=== PATIENT | female | born 1990 | race Caucasian/White ===

== ENCOUNTER 2016-08-13 13:50 | Outpatient (CLI) | payer MEDICAID ==
[2016-08-13 14:46] LABS: APPEARANCE,URINE CLOUDY; BILIRUBIN,URINE NEGATIVE (NEGATIVE); GLUCOSE, URINE NEGATIVE (NEGATIVE); KETONES,URINE 20 mg/dL (NEGATIVE); LEUKOCYTE ESTERASE,URINE LARGE (NEGATIVE); NITRITE,URINE NEGATIVE (NEGATIVE); PROTEIN,URINE 30 mg/dL (NEGATIVE); URINE SPECIFIC GRAVITY 1.009; UROBILINOGEN,URINE NEGATIVE mg/dL (<2.0)
[2016-08-13 14:53] LABS: URINE BARBITURATES SCREEN NEGATIVE; URINE METHADONE SCREEN NEGATIVE; URINE OPIATES LOW NEGATIVE; URINE PHENCYCLIDINE SCREEN NEGATIVE
[2016-08-13 15:10] LABS: URINE CREATININE 64.7 mg/dL (16-327); URINE PROTEIN 58.4 mg/dL (<12)
[2016-08-13 15:45] LABS: ABSOLUTE EOSINOPHILS # (AUTO) 0.1 10^3/uL (0.0-0.6); ABSOLUTE LYMPHOCYTES (AUTO) 1.7 10^3/uL (0.5-4.7); ABSOLUTE MONOCYTES (AUTO) 0.6 10^3/uL (0.1-1.4); ABSOLUTE NEUT (AUTO) 9.4 10^3/uL (1.7-8.2); BASOPHILS % (AUTO) 0.3 % (0-2); EOSINOPHILS % (AUTO) 0.8 % (0-6); HEMATOCRIT 33.4 % (36.0-47.0); HEMOGLOBIN 10.7 g/dL (12.0-15.5); HGB HCT DIFFERENCE -1.3; LYMPHOCYTES % (AUTO) 14.6 % (13-45); MEAN CORPUSCULAR HEMOGLOBIN 28.6 pg (27.0-33.4); MEAN CORPUSCULAR HGB CONC 32.1 g/dL (32.0-36.0); MEAN CORPUSCULAR VOLUME 89 fl (80-97); MONOCYTES % (AUTO) 5.4 % (3-13); RED BLOOD COUNT 3.75 10^6/uL (3.72-5.28); RED CELL DISTRIBUTION WIDTH 15.4 % (11.5-14.0); SEGMENTED NEUTROPHILS % (AUTO) 78.9 % (42-78); WHITE BLOOD COUNT 11.9 10^3/uL (4.0-10.5)
--- NOTE | 2016-08-13 16:09 | Non Stress Test Report ---
Non Stress Test Datetime Report Generated by CPN: 08/13/2016 16:09 DEMOGRAPHIC EGA NST: 35.4 INDICATION Indication for Study: Ordered by Provider MONITORING Monitor Explained: Monitor Explained; Test Explained; Patient Verbalized Understanding Time on Monitor: 08/13/2016 14:09 Time off Monitor: 08/13/2016 15:25 NST Duration: 76 NST INTERVENTIONS NST Interventions: PO Hydration; Reposition Patient Physician Notified NST: Dr. Neilsen BABY A: [id number] BABY A Movement : Present Contraction Frequency : Occassional FHR Baseline : 125 Accelerations : 15X15 Decelerations : None Variability : Moderate 6-25bpm NST Review: Meets Criteria for Reactive NST NST Review and Verified By : Rocio Gonzales RN NST Results: Reactive NST REPORT Report Trigger: Send Report
[2016-08-13 16:14] LABS: ALANINE AMINOTRANSFERASE 59 U/L (9-52); ALBUMIN 3.2 g/dL (3.5-5.0); ALKALINE PHOSPHATASE 135 U/L (38-126); ANION GAP 12 (5-19); ASPARTATE AMINO TRANSFERASE 31 U/L (14-36); BILIRUBIN,DIRECT 0.3 mg/dL (0.0-0.4); BILIRUBIN,TOTAL 0.4 mg/dL (0.2-1.3); BLOOD UREA NITROGEN 10 mg/dL (7-20); CALCIUM 9.4 mg/dL (8.4-10.2); CARBON DIOXIDE 20 mmol/L (22-30); CHLORIDE 108 mmol/L (98-107); CREATININE RESULT 0.72 mg/dL (0.52-1.25); GLUCOSE 68 mg/dL (75-110); LDH 460 U/L (313-618); POTASSIUM 4.8 mmol/L (3.6-5.0); SODIUM 140.4 mmol/L (137-145); TOTAL PROTEIN 6.3 g/dL (6.3-8.2); URIC ACID 6.6 mg/dL (2.5-6.2)
== END 2016-08-13 16:30 | disposition home or self-care (01) ==
LOC: LC 13:50
PROVIDERS: ATTEND Specialist
PROC: 4A1HXCZ Monitoring of Products of Conception, Cardiac Rate, External Approach (ICD-10-PCS; principal; 2016-08-13)
DX: O14.93 Unspecified pre-eclampsia, third trimester (principal); Z3A.35 35 weeks gestation of pregnancy
CPT/HCPCS: 36415; 59025; 80053; 80307; 81001; 82570; 83615; 84156; 84550; 85025

== ENCOUNTER 2016-08-19 16:39 | Outpatient (CLI) | payer MEDICAID ==
[2016-08-19 17:27] LABS: ABSOLUTE EOSINOPHILS # (AUTO) 0.1 10^3/uL (0.0-0.6); ABSOLUTE LYMPHOCYTES (AUTO) 1.8 10^3/uL (0.5-4.7); ABSOLUTE MONOCYTES (AUTO) 0.6 10^3/uL (0.1-1.4); ABSOLUTE NEUT (AUTO) 10.5 10^3/uL (1.7-8.2); BASOPHILS % (AUTO) 0.2 % (0-2); EOSINOPHILS % (AUTO) 0.8 % (0-6); HEMATOCRIT 33.6 % (36.0-47.0); HEMOGLOBIN 10.9 g/dL (12.0-15.5); HGB HCT DIFFERENCE -0.9; LYMPHOCYTES % (AUTO) 13.6 % (13-45); MEAN CORPUSCULAR HEMOGLOBIN 28.9 pg (27.0-33.4); MEAN CORPUSCULAR HGB CONC 32.5 g/dL (32.0-36.0); MEAN CORPUSCULAR VOLUME 89 fl (80-97); MONOCYTES % (AUTO) 4.8 % (3-13); RED BLOOD COUNT 3.77 10^6/uL (3.72-5.28); RED CELL DISTRIBUTION WIDTH 16.3 % (11.5-14.0); SEGMENTED NEUTROPHILS % (AUTO) 80.6 % (42-78)
[2016-08-19 17:34] LABS: APPEARANCE,URINE CLOUDY; BILIRUBIN,URINE NEGATIVE (NEGATIVE); GLUCOSE, URINE NEGATIVE (NEGATIVE); KETONES,URINE NEGATIVE (NEGATIVE); LEUKOCYTE ESTERASE,URINE LARGE (NEGATIVE); NITRITE,URINE NEGATIVE (NEGATIVE); PROTEIN,URINE NEGATIVE (NEGATIVE); URINE SPECIFIC GRAVITY 1.005; UROBILINOGEN,URINE NEGATIVE mg/dL (<2.0)
[2016-08-19 17:44] LABS: URINE BARBITURATES SCREEN NEGATIVE; URINE METHADONE SCREEN NEGATIVE; URINE OPIATES LOW NEGATIVE; URINE PHENCYCLIDINE SCREEN NEGATIVE
[2016-08-19 17:44] LABS: ALANINE AMINOTRANSFERASE 53 U/L (9-52); ALBUMIN 3.3 g/dL (3.5-5.0); ALKALINE PHOSPHATASE 178 U/L (38-126); ANION GAP 11 (5-19); ASPARTATE AMINO TRANSFERASE 30 U/L (14-36); BILIRUBIN,DIRECT 0.4 mg/dL (0.0-0.4); BILIRUBIN,TOTAL 0.5 mg/dL (0.2-1.3); BLOOD UREA NITROGEN 7 mg/dL (7-20); CALCIUM 9.1 mg/dL (8.4-10.2); CARBON DIOXIDE 20 mmol/L (22-30); CHLORIDE 108 mmol/L (98-107); CREATININE RESULT 0.72 mg/dL (0.52-1.25); GLUCOSE 79 mg/dL (75-110); LDH 430 U/L (313-618); POTASSIUM 4.6 mmol/L (3.6-5.0); SODIUM 138.8 mmol/L (137-145); TOTAL PROTEIN 6.3 g/dL (6.3-8.2); URIC ACID 5.7 mg/dL (2.5-6.2)
[2016-08-19 17:53] LABS: URINE PROTEIN 27.9 mg/dL (<12)
--- NOTE | 2016-08-19 17:57 | Non Stress Test Report ---
Non Stress Test Datetime Report Generated by CPN: 08/19/2016 17:57 DEMOGRAPHIC EGA NST: 36.3 INDICATION Indication for Study: Ordered by Provider MONITORING Monitor Explained: Monitor Explained; Test Explained; Patient Verbalized Understanding Time on Monitor: 08/19/2016 17:02 Time off Monitor: 08/19/2016 17:23 NST Duration: 21 NST INTERVENTIONS NST Interventions: None Physician Notified NST: Dr. Dyson BABY A: [id number] BABY A Movement : Present Contraction Frequency : none FHR Baseline : 135 Accelerations : 15X15 Decelerations : None Variability : Moderate 6-25bpm NST Review: Meets Criteria for Reactive NST NST Review and Verified By : JAMESON RUSH RN NST Results: Reactive NST REPORT Report Trigger: Send Report
[2016-08-21 21:13] LABS: URINE PROTEIN 34.9 mg/dL (<12)
== END 2016-08-19 18:20 | disposition home or self-care (01) ==
LOC: LC 16:39
PROVIDERS: ATTEND Obstetrics & Gynecology
DX: O14.93 Unspecified pre-eclampsia, third trimester (principal); Z3A.36 36 weeks gestation of pregnancy
CPT/HCPCS: 36415; 59025; 80053; 80307; 81001; 82570; 83615; 84156; 84550; 85025

== ENCOUNTER 2016-08-23 16:53 | Inpatient (IN) | payer MEDICAID ==
[2016-08-23 17:43] LABS: APPEARANCE,URINE CLOUDY; BILIRUBIN,URINE NEGATIVE (NEGATIVE); GLUCOSE, URINE NEGATIVE (NEGATIVE); KETONES,URINE NEGATIVE (NEGATIVE); LEUKOCYTE ESTERASE,URINE MODERATE (NEGATIVE); NITRITE,URINE NEGATIVE (NEGATIVE); PROTEIN,URINE 100 mg/dL (NEGATIVE); URINE SPECIFIC GRAVITY 1.018; UROBILINOGEN,URINE NEGATIVE mg/dL (<2.0)
[2016-08-23 17:44] LABS: ABSOLUTE EOSINOPHILS # (AUTO) 0.1 10^3/uL (0.0-0.6); ABSOLUTE LYMPHOCYTES (AUTO) 1.6 10^3/uL (0.5-4.7); ABSOLUTE MONOCYTES (AUTO) 0.8 10^3/uL (0.1-1.4); BASOPHILS % (AUTO) 0.3 % (0-2); EOSINOPHILS % (AUTO) 0.9 % (0-6); HEMATOCRIT 35.5 % (36.0-47.0); HEMOGLOBIN 11.6 g/dL (12.0-15.5); HGB HCT DIFFERENCE -0.7; LYMPHOCYTES % (AUTO) 13.7 % (13-45); MEAN CORPUSCULAR HEMOGLOBIN 29.1 pg (27.0-33.4); MEAN CORPUSCULAR HGB CONC 32.7 g/dL (32.0-36.0); MEAN CORPUSCULAR VOLUME 89 fl (80-97); MONOCYTES % (AUTO) 7.3 % (3-13); RED BLOOD COUNT 3.99 10^6/uL (3.72-5.28); SEGMENTED NEUTROPHILS % (AUTO) 77.8 % (42-78); WHITE BLOOD COUNT 11.6 10^3/uL (4.0-10.5)
[2016-08-23 17:56] LABS: URINE BARBITURATES SCREEN NEGATIVE; URINE METHADONE SCREEN NEGATIVE; URINE OPIATES LOW NEGATIVE; URINE PHENCYCLIDINE SCREEN NEGATIVE
[2016-08-23 18:06] LABS: URINE CREATININE 192.2 mg/dL (16-327); URINE PROTEIN 47.5 mg/dL (<12)
[2016-08-23 18:15] LABS: ALANINE AMINOTRANSFERASE 66 U/L (9-52); ALBUMIN 3.3 g/dL (3.5-5.0); ALKALINE PHOSPHATASE 199 U/L (38-126); ANION GAP 11 (5-19); ASPARTATE AMINO TRANSFERASE 40 U/L (14-36); BILIRUBIN,DIRECT 0.3 mg/dL (0.0-0.4); BILIRUBIN,TOTAL 0.4 mg/dL (0.2-1.3); BLOOD UREA NITROGEN 10 mg/dL (7-20); CALCIUM 9.1 mg/dL (8.4-10.2); CARBON DIOXIDE 19 mmol/L (22-30); CHLORIDE 107 mmol/L (98-107); CREATININE RESULT 0.72 mg/dL (0.52-1.25); GLUCOSE 67 mg/dL (75-110); LDH 459 U/L (313-618); POTASSIUM 4.4 mmol/L (3.6-5.0); TOTAL PROTEIN 6.4 g/dL (6.3-8.2); URIC ACID 5.9 mg/dL (2.5-6.2)
[2016-08-23] MEDS ORDERED: ACETAMINOPHEN 325 MG TABLET PO PRN (19:45)
[2016-08-23] MEDS ORDERED: MAG HYDROX/AL HYDROX/SIMETH SUSP 30 ML UDCUP PO PRN (19:45)
[2016-08-23] MEDS ORDERED: ZOLPIDEM TARTRATE 5 MG TABLET PO PRN ×3 (19:45→23:37)
[2016-08-23] MEDS ORDERED: RINGERS SOLUTION,LACTATED 300 ML IV ONE (19:49)
[2016-08-23] MEDS ORDERED: DINOPROSTONE 10 MG VAGINAL INSERT.SR PV PRN (19:49)
[2016-08-23] MEDS ORDERED: DINOPROSTONE 10 MG VAGINAL INSERT.SR ONE (20:40)
[2016-08-23] MEDS: RINGERS SOLUTION,LACTATED 1,000 ML IV PRN (21:09)
[2016-08-23] MEDS ORDERED: ZOLPIDEM TARTRATE 5 MG TABLET ONE (23:29)
[2016-08-24] MEDS: RINGERS SOLUTION,LACTATED 1,000 ML IV PRN ×3 (01:26→23:43)
[2016-08-24 05:48] LABS: ABSOLUTE EOSINOPHILS # (AUTO) 0.1 10^3/uL (0.0-0.6); ABSOLUTE LYMPHOCYTES (AUTO) 1.7 10^3/uL (0.5-4.7); ABSOLUTE MONOCYTES (AUTO) 0.8 10^3/uL (0.1-1.4); ABSOLUTE NEUT (AUTO) 9.8 10^3/uL (1.7-8.2); BASOPHILS % (AUTO) 0.3 % (0-2); EOSINOPHILS % (AUTO) 0.6 % (0-6); HEMATOCRIT 34.9 % (36.0-47.0); HEMOGLOBIN 11.5 g/dL (12.0-15.5); HGB HCT DIFFERENCE -0.4; LYMPHOCYTES % (AUTO) 13.7 % (13-45); MEAN CORPUSCULAR HEMOGLOBIN 29.6 pg (27.0-33.4); MEAN CORPUSCULAR HGB CONC 33.1 g/dL (32.0-36.0); MEAN CORPUSCULAR VOLUME 90 fl (80-97); MONOCYTES % (AUTO) 6.3 % (3-13); RED BLOOD COUNT 3.89 10^6/uL (3.72-5.28); RED CELL DISTRIBUTION WIDTH 15.9 % (11.5-14.0); SEGMENTED NEUTROPHILS % (AUTO) 79.1 % (42-78); WHITE BLOOD COUNT 12.4 10^3/uL (4.0-10.5)
[2016-08-24 06:07] LABS: ALANINE AMINOTRANSFERASE 60 U/L (9-52); ALBUMIN 3.1 g/dL (3.5-5.0); ALKALINE PHOSPHATASE 199 U/L (38-126); ANION GAP 11 (5-19); ASPARTATE AMINO TRANSFERASE 41 U/L (14-36); BILIRUBIN,DIRECT 0.4 mg/dL (0.0-0.4); BILIRUBIN,TOTAL 0.6 mg/dL (0.2-1.3); BLOOD UREA NITROGEN 9 mg/dL (7-20); CALCIUM 9.2 mg/dL (8.4-10.2); CARBON DIOXIDE 17 mmol/L (22-30); CHLORIDE 109 mmol/L (98-107); CREATININE RESULT 0.72 mg/dL (0.52-1.25); GLUCOSE 82 mg/dL (75-110); LDH 406 U/L (313-618); POTASSIUM 4.4 mmol/L (3.6-5.0); TOTAL PROTEIN 5.8 g/dL (6.3-8.2); URIC ACID 6.5 mg/dL (2.5-6.2)
[2016-08-24] MEDS ORDERED: NALBUPHINE HCL INJ 10 MG/1 ML AMPULE ONE (11:40)
[2016-08-24] MEDS ORDERED: OXYTOCIN/NORMAL SALINE 1,000 ML IV PRN (11:40)
--- NOTE | 2016-08-24 11:41 | L&D Progress Notes ---
PROGRESS NOTES Datetime Report Generated by CPN: 08/24/2016 11:40 PROGRESS NOTE Impression: Normal Progression of Labor Procedures: Sterile Vag Exam Plan: Continue Present Management; Induction; Cervical Ripening Informed Consent Obtained: Vaginal Delivery; Risks, Benefits and Alternatives Discussed Vital Signs : Reviewed; Within Normal Limits Comment: IOL for PreE. Cvx c/th/hi last pm and pt recieved cervidil. Cvx now /3 and Cooks catheter placed. Will begin pitocin. Anticpate . Baby approx 8#. Pelvis adequate for MELY. CAT I FHR tracing. VAGINAL EXAM Dilatation: 1 Effacement: 50 Station: -3 FETUS A FHR - Baseline: 130 Monitoring: External US Variability: Moderate 6-25bpm Accelerations: 15X15 Decelerations: None FHR Category: Category I SIGNATURE SIGNATURE: [id number];[id number] SIGNATURE: [id number] SIGNATURE: [id number] Signature: with User ID: [email or web address]
[2016-08-24] MEDS ORDERED: OXYTOCIN/NORMAL SALINE 20 UNIT/1,000 ML RTUINJ ONE (11:49)
[2016-08-24] MEDS ORDERED: EPHEDRINE SULFATE INJ 50 MG/1 ML AMPULE ONE (15:49)
[2016-08-24] MEDS ORDERED: MISOPROSTOL 0.2 MG TABLET ONE (15:49)
[2016-08-24] MEDS ORDERED: BUPIVACAINE HCL 0.25 % INJ/PF (2.5 MG/1 ML) 30 ML VIAL ONE (15:50)
[2016-08-24] MEDS ORDERED: LIDOCAINE 1% INJ-PF (10 MG/ML) 30 ML SDV ONE (15:50)
[2016-08-24] MEDS ORDERED: FENTANYL/BUPIVACAINE/NS/PF 200 MCG/100 ML RTUINJ EPI ONE (15:50)
--- NOTE | 2016-08-24 15:58 | L&D Progress Notes ---
PROGRESS NOTES Datetime Report Generated by CPN: 08/24/2016 15:58 PROGRESS NOTE Impression: Normal Progression of Labor Procedures: Sterile Vag Exam Plan: Continue Present Management; Induction Informed Consent Obtained: Vaginal Delivery; Risks, Benefits and Alternatives Discussed Vital Signs : Reviewed; Within Normal Limits Comment: cooks catheter coming out. Cooks catheter removed. cvx 5-6/70/-2. Pt desires epidural. Will get epidural and then AROM and continue pitocin. Anticpate . VAGINAL EXAM Dilatation: 5 Effacement: 70 Station: -2 MEMBRANES Membranes: Intact FETUS A FHR - Baseline: 125 Monitoring: External US Variability: Moderate 6-25bpm Accelerations: 15X15 Decelerations: None FHR Category: Category I FETUS C SIGNATURE: [id number];[id number] Signature: with User ID: Hang
--- NOTE | 2016-08-24 17:10 | L&D Progress Notes ---
PROGRESS NOTES Datetime Report Generated by CPN: 08/24/2016 17:10 PROGRESS NOTE Impression: Normal Progression of Labor Procedures: Artificial ROM; Sterile Vag Exam Plan: Continue Present Management; Induction Informed Consent Obtained: Vaginal Delivery; Risks, Benefits and Alternatives Discussed Vital Signs : Reviewed; Within Normal Limits Comment: epidural done. AROM with particulate meconium. cvx 6/70/-2. BPs mild range. Doing well. Continue pitocin. Anticpate . BPs mild range. Repeat Labs at 1800 VAGINAL EXAM Dilatation: 6 Effacement: 70 Station: -2 MEMBRANES Membranes: Ruptured Amniotic Fluid Color: Meconium, Particulate FETUS A FHR - Baseline: 120 Monitoring: External US Variability: Moderate 6-25bpm Accelerations: 15X15 Decelerations: None FHR Category: Category I FETUS C SIGNATURE: [id number];[id number] Signature: with User ID: Hang
[2016-08-24 17:48] LABS: ABSOLUTE EOSINOPHILS # (AUTO) 0.1 10^3/uL (0.0-0.6); ABSOLUTE LYMPHOCYTES (AUTO) 1.4 10^3/uL (0.5-4.7); ABSOLUTE MONOCYTES (AUTO) 0.8 10^3/uL (0.1-1.4); BASOPHILS % (AUTO) 0.3 % (0-2); EOSINOPHILS % (AUTO) 0.5 % (0-6); HEMATOCRIT 35.2 % (36.0-47.0); HEMOGLOBIN 11.5 g/dL (12.0-15.5); HGB HCT DIFFERENCE -0.7; LYMPHOCYTES % (AUTO) 11.3 % (13-45); MEAN CORPUSCULAR HEMOGLOBIN 29.4 pg (27.0-33.4); MEAN CORPUSCULAR HGB CONC 32.5 g/dL (32.0-36.0); MEAN CORPUSCULAR VOLUME 90 fl (80-97); MONOCYTES % (AUTO) 6.6 % (3-13); RED CELL DISTRIBUTION WIDTH 16.4 % (11.5-14.0); SEGMENTED NEUTROPHILS % (AUTO) 81.3 % (42-78); WHITE BLOOD COUNT 12.3 10^3/uL (4.0-10.5)
[2016-08-24 18:00] LABS: ALANINE AMINOTRANSFERASE 58 U/L (9-52); ALBUMIN 3.1 g/dL (3.5-5.0); ALKALINE PHOSPHATASE 202 U/L (38-126); ANION GAP 11 (5-19); ASPARTATE AMINO TRANSFERASE 34 U/L (14-36); BILIRUBIN,DIRECT 0.4 mg/dL (0.0-0.4); BILIRUBIN,TOTAL 0.6 mg/dL (0.2-1.3); BLOOD UREA NITROGEN 9 mg/dL (7-20); CALCIUM 9.1 mg/dL (8.4-10.2); CARBON DIOXIDE 18 mmol/L (22-30); CHLORIDE 106 mmol/L (98-107); GLUCOSE 63 mg/dL (75-110); LDH 368 U/L (313-618); POTASSIUM 4.8 mmol/L (3.6-5.0); SODIUM 135.2 mmol/L (137-145); TOTAL PROTEIN 5.9 g/dL (6.3-8.2); URIC ACID 6.1 mg/dL (2.5-6.2)
--- NOTE | 2016-08-24 21:16 | L&D Progress Notes ---
PROGRESS NOTES Datetime Report Generated by CPN: 08/24/2016 21:16 PROGRESS NOTE Impression: Normal Progression of Labor; Reassuring Heart Rate; Reactive Non Stress Test Procedures: Intrauterine Pressure Catheter; Scalp Electrode; Sterile Vag Exam Plan: Continue Present Management; Induction Informed Consent Obtained: Vaginal Delivery; Risks, Benefits and Alternatives Discussed Vital Signs : Reviewed; Within Normal Limits Comment: IUPC and FSE in place. 6-7/80/0 now. Intermittently adequate MVUs. still with dysfunctional labor pattern. Will continue with pitocin. Pt making change. Pelvis adequate for MELY. will continue with IOL as FHR tracing is reactive and reassuring. Anticipate VAGINAL EXAM Dilatation: 6 Effacement: 80 Station: 0 MEMBRANES Membranes: Ruptured Amniotic Fluid Color: Meconium, Particulate FETUS A FHR - Baseline: 125 Variability: Moderate 6-25bpm Accelerations: 15X15 Decelerations: None FHR Category: Category I FETUS C SIGNATURE: [id number];[id number] Signature: Electronically signed by Vandana Klein MD ([facility]) on 08/24/2016 at 21:15 with User ID: [email or web address]
[2016-08-24] MEDS ORDERED: ACETAMINOPHEN 325 MG TABLET PO ONE (23:11)
[2016-08-24] MEDS ORDERED: ACETAMINOPHEN 325 MG TABLET ONE (23:16)
[2016-08-24] MEDS ORDERED: HYDRALAZINE HCL INJ/PF 20 MG/1 ML SDV IV ONE (23:32)
[2016-08-24] MEDS ORDERED: HYDRALAZINE HCL INJ/PF 20 MG/1 ML SDV ONE (23:36)
[2016-08-25] MEDS ORDERED: FENTANYL/BUPIVACAINE/NS/PF 200 MCG/100 ML RTUINJ EPI ONE ×2 (01:42→11:26)
[2016-08-25] MEDS ORDERED: BUPIVACAINE HCL 0.25 % INJ/PF (2.5 MG/1 ML) 30 ML VIAL ONE (01:43)
--- NOTE | 2016-08-25 03:47 | L&D Progress Notes ---
PROGRESS NOTES Datetime Report Generated by N: 08/25/2016 03:46 PROGRESS NOTE Impression: Normal Progression of Labor; Reassuring Heart Rate Procedures: Sterile Vag Exam Plan: Continue Present Management; Induction Informed Consent Obtained: Vaginal Delivery; Risks, Benefits and Alternatives Discussed Vital Signs : Reviewed Vital Signs Comments: intermittently elevated BPs improved with meds Comment: Pit rest with 250ml D5 given from 2300-midnight due to unable to obtain adequate MVUs despite max pitocin dose. Pitocin restarted at approx midnight at half and increased per protocol. Now at 20 and will increase pitocin to 30 if resting tone remains stable. MVUs only adequate since midnight for approx 15-20 minute cycle. Will continue to increase pitocin per protocol. If unable to obtain adequate MVUs or cervical change at that time then patient may need section. Will continue to monitor. Pt and family informed of plan of care. Pelvis adequate for continued MELY VAGINAL EXAM Dilatation: 6 Effacement: 80 Station: 0 MEMBRANES Membranes: Ruptured Amniotic Fluid Color: Meconium, Particulate FETUS A Monitoring: External US Variability: Moderate 6-25bpm Accelerations: 15X15 Decelerations: None FHR Category: Category I FETUS C SIGNATURE: [id number];[id number] Signature: with User ID: [email or web address]
[2016-08-25 06:11] LABS: ABSOLUTE BASOPHILS # (AUTO) 0.1 10^3/uL (0.0-0.2); ABSOLUTE LYMPHOCYTES (AUTO) 0.9 10^3/uL (0.5-4.7); ABSOLUTE MONOCYTES (AUTO) 1.2 10^3/uL (0.1-1.4); ABSOLUTE NEUT (AUTO) 15.5 10^3/uL (1.7-8.2); BASOPHILS % (AUTO) 0.3 % (0-2); EOSINOPHILS % (AUTO) 0.2 % (0-6); HEMOGLOBIN 11.8 g/dL (12.0-15.5); HGB HCT DIFFERENCE -0.6; LYMPHOCYTES % (AUTO) 5.1 % (13-45); MEAN CORPUSCULAR HEMOGLOBIN 29.5 pg (27.0-33.4); MEAN CORPUSCULAR HGB CONC 32.8 g/dL (32.0-36.0); MEAN CORPUSCULAR VOLUME 90 fl (80-97); MONOCYTES % (AUTO) 6.6 % (3-13); RED BLOOD COUNT 4.01 10^6/uL (3.72-5.28); RED CELL DISTRIBUTION WIDTH 16.1 % (11.5-14.0); SEGMENTED NEUTROPHILS % (AUTO) 87.8 % (42-78); WHITE BLOOD COUNT 17.6 10^3/uL (4.0-10.5)
[2016-08-25 06:42] LABS: ALANINE AMINOTRANSFERASE 67 U/L (9-52); ALBUMIN 2.8 g/dL (3.5-5.0); ALKALINE PHOSPHATASE 203 U/L (38-126); ANION GAP 14 (5-19); ASPARTATE AMINO TRANSFERASE 43 U/L (14-36); BILIRUBIN,DIRECT 0.5 mg/dL (0.0-0.4); BILIRUBIN,TOTAL 0.8 mg/dL (0.2-1.3); BLOOD UREA NITROGEN 11 mg/dL (7-20); CALCIUM 8.9 mg/dL (8.4-10.2); CARBON DIOXIDE 14 mmol/L (22-30); CHLORIDE 109 mmol/L (98-107); CREATININE RESULT 1.05 mg/dL (0.52-1.25); GLUCOSE 81 mg/dL (75-110); LDH 517 U/L (313-618); POTASSIUM 4.3 mmol/L (3.6-5.0); SODIUM 136.9 mmol/L (137-145); TOTAL PROTEIN 5.8 g/dL (6.3-8.2)
--- NOTE | 2016-08-25 07:46 | L&D Progress Notes ---
PROGRESS NOTES Datetime Report Generated by CPN: 08/25/2016 07:46 PROGRESS NOTE Impression: Normal Progression of Labor; Reassuring Heart Rate Procedures: Artificial ROM; Sterile Vag Exam Plan: Continue Present Management; Induction Informed Consent Obtained: Vaginal Delivery; Induction of Labor Vital Signs : Reviewed Comment: Pt with PreE and now has had to recieve 2 doses of hydralazine. Labs also increasing. Will need to start Magnesium. Pt has been adequate over the last 1-2 hours and now with cervical change and entering labor. cvx change to 7.5/80/+1. Will continue with pitocin and IOL. Pt is aware if cervical change does not continue that may need c/s. Will likely need BP meds pp. Pelvis adequate for MELY. VAGINAL EXAM Dilatation: 7 Effacement: 80 Station: 1 MEMBRANES Amniotic Fluid Color: Meconium, Particulate FETUS A FHR - Baseline: 150 Monitoring: External US Variability: Moderate 6-25bpm Accelerations: 15X15 Decelerations: None FHR Category: Category I FETUS C SIGNATURE: [id number];[id number] Signature: with User ID: [email or web address]
[2016-08-25] MEDS ORDERED: OXYTOCIN/NORMAL SALINE 20 UNIT/1,000 ML RTUINJ ONE ×2 (08:36→17:47)
--- NOTE | 2016-08-25 08:48 | L&D Progress Notes ---
PROGRESS NOTES Datetime Report Generated by CPN: 08/25/2016 08:48 PROGRESS NOTE Plan: Continue Present Management; Induction Informed Consent Obtained: Vaginal Delivery; Risks, Benefits and Alternatives Discussed Vital Signs : Reviewed Vital Signs Comments: elevated bps pt denies headaches or blurred vision noted swelling throughout pt given 2 doses hydralazine total since admission will monitor and consider initiating magnesium at delivery Comment: 26 yo here for induction of labor secondary to Preeclampsia EDC 09/13/16 EGA 37.2 GDM on glyburide 2.5 mg po qhs Asthma Macrosomia at [address] pt left lateral reviewed elevated bps with Dr. Dyson- consider starting magnesium sulfate at delivery bps labile pt denies headache or blurred vision at this time dtrs +3 no clonus pt reporting increased urge to push anticipate VAGINAL EXAM Contractions: 2-4 min FETUS A FHR - Baseline: 120 Monitoring: External US Variability: Moderate 6-25bpm Accelerations: 15X15 Decelerations: None : 37.2 FETUS C SIGNATURE: [id number];[id number] Assignment: Kj Dyson DO Signature: with User ID: Katharine : with User ID: [email or web address]
[2016-08-25] MEDS ORDERED: ACETAMINOPHEN 325 MG TABLET ONE (11:33)
--- NOTE | 2016-08-25 11:55 | L&D Progress Notes ---
PROGRESS NOTES Datetime Report Generated by CPN: 08/25/2016 11:54 PROGRESS NOTE Impression: Chorioamnionitis Plan: Continue Present Management Informed Consent Obtained: Vaginal Delivery; Induction of Labor; Risks, Benefits and Alternatives Discussed Vital Signs : Reviewed Vital Signs Comments: pt pushing now Comment: pt with increased urge to push temp 101 tylenol given 975 mg po x 1 Unasyn 3 gm q 8 ivpb start now C/C/ +[address] dyson aware and concurs with poc MEMBRANES Amniotic Fluid Color: Meconium, Light FETUS A Variability: Moderate 6-25bpm Decelerations: None FHR Category: Category I FETUS C SIGNATURE: [id number];[id number] Assignment: Kj Dyson DO Signature: with User ID: Katharine : with User ID: [email or web address]
[2016-08-25] MEDS ORDERED: AMPICILLIN SOD/SULBACTAM 3 GM VIAL ONE (12:26)
[2016-08-25] MEDS ORDERED: AMPICILLIN SOD/SULBACTAM 3 GM VIAL IV SCH (14:00)
[2016-08-25] MEDS ORDERED: CITRIC ACID/SODIUM CITRATE ORAL SOLN 15 ML UDCUP ONE (14:23)
[2016-08-25] MEDS ORDERED: METHYLERGONOVINE MALEATE INJ/PF 0.2 MG/1 ML AMPULE ONE (14:25)
[2016-08-25] MEDS ORDERED: CEFAZOLIN 2 GM/D5W RTU 2 GM/50 ML RTUPB IV ONE (14:25)
[2016-08-25] MEDS ORDERED: CARBOPROST TROMETHAMINE INJ 250 MCG/1 ML AMPULE ONE ×2 (14:25→14:26)
[2016-08-25] MEDS ORDERED: LIDOCAINE 2%/EPINEPHRINE INJ 20 ML VIAL ONE (14:35)
[2016-08-25] MEDS ORDERED: SODIUM BICARBONATE 8.4% INJ 50 MEQ/50 ML DISP.SYRIN ONE (14:35)
[2016-08-25] MEDS ORDERED: FENTANYL CITRATE INJ/PF 100 MCG/2 ML AMPUL ONE (14:39)
[2016-08-25] MEDS ORDERED: OXYTOCIN 10 UNIT/ML VIAL ONE (14:39)
[2016-08-25] MEDS ORDERED: MIDAZOLAM 2 MG/2 ML INJ ONE (14:40)
[2016-08-25] MEDS ORDERED: EPHEDRINE SULFATE INJ 50 MG/1 ML AMPULE ONE (14:40)
[2016-08-25] MEDS ORDERED: ONDANSETRON HCL INJ/PF 4 MG/2 ML SDV ONE (14:40)
[2016-08-25] MEDS ORDERED: AMPICILLIN SODIUM/SULBACTAM NA 3 GM in NORMAL SALINE 100 ML IV SCH (15:00)
[2016-08-25] MEDS ORDERED: MORPHINE SULFATE 10 MG/ML INJ ONE (15:35)
[2016-08-25] MEDS ORDERED: ACETAMINOPHEN 100 ML IV ONE (16:05)
[2016-08-25] MEDS ORDERED: FENTANYL CITRATE INJ/PF 100 MCG/2 ML AMPUL IV PRN ×3 (16:10)
[2016-08-25] MEDS ORDERED: MORPHINE SULFATE 10 MG/ML INJ IV PRN (16:10)
[2016-08-25] MEDS ORDERED: MEPERIDINE HCL/PF INJ 25 MG/1 ML DISP.SYRIN IV PRN (16:10)
[2016-08-25] MEDS ORDERED: PROMETHAZINE HCL INJ 25 MG/1 ML VIAL IV PRN ×3 (16:10→18:46)
[2016-08-25] MEDS ORDERED: DIPHENHYDRAMINE HCL 50 MG/ML VIAL IV PRN (16:10)
[2016-08-25] MEDS ORDERED: MORPHINE SULFATE 10 MG/ML INJ IV ONE (17:42)
[2016-08-25] MEDS ORDERED: DIPHENOXYLATE HCL/ATROP SULF 2.5-0.025 MG TABLET PO ONE (18:00)
--- NOTE | 2016-08-25 18:22 | Admission Physical ---
Datetime Report Generated by CPN: 08/25/2016 18:22 CURRENT ADMISSION Hx Assessment: The History has been Reviewed and is Current Chief Complaint: Sent from OB Office for Evaluation and Treatment - Please Specify Chief Complaint Other: sent for elevated bps Admit Plan: Initiate Labor Induction Protocol ALLERGIES Medication Allergies: No Medication Allergies: hydromorphone/MT/Skin Redness (08/23/2016); montelukast (08/23/2016) Medication Allergies: hydromorphone/MT/Skin Redness (08/23/2016) Medication Allergies: hydromorphone/MT/Skin Redness (08/19/2016) Medication Allergies: hydromorphone/MT/Skin Redness (08/13/2016) Medication Allergies: No Known Allergies (01/17/2016) Latex: No Latex Allergies Environmental Allergies: Dust OBSTETRICAL HISTORY EDC: 09/13/2016 00:00 : 3 Para: 0 Term: 0 : 0 SAB: 0 IAB: 2 Ectopic: 0 Livin Cesareans: 0 VBACs: 0 Multiple Births: 0 Gestational Diabetes: Yes Rh Sensitization: No Incompetent Cervix: No LOUIE: No Infertility: No ART Treatment: No Uterine Anomaly: No IUGR: No Hx Previous C/S: No Macrosomia: No Hx Loss/Stillborn: No PIH: Yes Hx : No Placenta Previa/Abruption: No Depression/PP Depression: No PTL/PROM: No Post Hemorrhage: No Current Procedures: Ultrasound; NST Obstetrical History Comments: G1- IAB G2- IAB G3- Current- GDM on glyburide SEE RECORDS Alcohol: No Marijuana : No Cocaine: No Other Illicit Drugs: No Cigarettes: Smoker, Current Status Unknown. [id number] MEDICAL HISTORY Diabetes: Yes Diabetes Type: Gestational Diabetes Blood Transfusion: No Pulmonary Disease (Asthma, TB): Yes Breast Disease: No Hypertension: No Escrow Manager Surgery: No Heart Disease: No Hosp/Surgery: No Autoimmune Disorder: No Anesthetic Complications: No Kidney Disease: No Abnormal Pap Smear: No Neuro/Epilepsy: No Psychiatric Disorders: No Other Medical Diseases: No Hepatitis/Liver Disease: No Significant Family History: No Varicosities/Phlebitis: No Trauma/Violence : No Thyroid Dysfunction: No Medical History Comments: Asthma- pt uses Symbicort and Albuterol PRN; pt reports asthma well controlled and last asthma attack was at 5 weeks EGA. INFECTIOUS HISTORY Gonorrhea: No Genital Herpes: No Chlamydia: No Tuberculosis: No Syphilis: No Hepatitis: No HIV/AIDS Exposure: No Rash or Viral Illness: No HPV: No PHYSICAL EXAM General: Normal HEENT: Normal Neurologic: Normal Thyroid: Normal Heart: Normal Lungs: Normal Breast: Normal Back: Normal Abdomen: Normal Genitourinary Exam: Normal Extremities: Normal DTRs: Normal Pelvic Type: Adequate Physical Exam Comments: asthma-on symbicort GDMA2-on glyburide pt with ruq pain today and occasional mild LIZAMA -ast/alt 40/66 VAGINAL EXAM Dilatation: 7 Dilatation: 6 Dilatation: 6 Dilatation: 6 Dilatation: 5 Dilatation: 1 Effacement: 80 Effacement: 80 Effacement: 80 Effacement: 70 Effacement: 70 Effacement: 50 Station: 1 Station: 0 Station: 0 Station: -2 Station: -2 Station: -3 Contraction Comments: 2-4 min MEMBRANES Membranes: Ruptured Membranes: Ruptured Membranes: Ruptured Membranes: Intact Amniotic Fluid Color: Meconium, Light Amniotic Fluid Color: Meconium, Particulate Amniotic Fluid Color: Meconium, Particulate Amniotic Fluid Color: Meconium, Particulate Amniotic Fluid Color: Meconium, Particulate FETUS A EGA: 37.0 Monitoring: External US FHR Category: Category I Admit Comment: admit due to preeclampsia spectrum disease and start indcution, will optimize glycemic control and cont symbicort PLANS FOR LABOR AND DELIVERY Labor and Delivery: None Pain Management: Epidural Feeding Preference: Breast Benefit of Breast Feed Discussed: Yes Circumcision: N/A INFORMED CONSENT Informed Consent Obtained: Vaginal Delivery; Induction of Labor; Risks, Benefits and Alternatives Discussed Informed Consent Obtained: Vaginal Delivery; Risks, Benefits and Alternatives Discussed Informed Consent Obtained: Vaginal Delivery; Induction of Labor Informed Consent Obtained: Vaginal Delivery; Risks, Benefits and Alternatives Discussed Informed Consent Obtained: Vaginal Delivery; Risks, Benefits and Alternatives Discussed Informed Consent Obtained: Vaginal Delivery; Risks, Benefits and Alternatives Discussed Informed Consent Obtained: Vaginal Delivery; Risks, Benefits and Alternatives Discussed Informed Consent Obtained: Vaginal Delivery; Risks, Benefits and Alternatives Discussed Signature: with User ID: [email or web address]
[2016-08-25] MEDS ORDERED: DIPH/PERTUSS(ACELL)/TETANUS VAC/PF 0.5 ML SYR (>=10YO) IM PRN (18:46)
[2016-08-25] MEDS ORDERED: SIMETHICONE 80 MG TAB.CHEW PO PRN (18:46)
[2016-08-25] MEDS ORDERED: MEASLES,MUMPS&RUBELLA VACC/PF 0.5 ML VIAL SUBCUT PRN (18:46)
[2016-08-25] MEDS ORDERED: OXYCODONE-ACETAMINOPHEN 5-325 MG TABLET PO PRN (18:46)
[2016-08-25] MEDS ORDERED: ACETAMINOPHEN 325 MG TABLET PO PRN (18:46)
[2016-08-25] MEDS ORDERED: OXYTOCIN/NORMAL SALINE 1,000 ML IV PRN (18:46)
[2016-08-25] MEDS ORDERED: IBUPROFEN 800 MG TABLET PO PRN (19:04)
--- NOTE | 2016-08-25 19:09 | Delivery Summary ---
Del Sum A-C Datetime Report Generated by CPN: 08/25/2016 19:09 DELIVERY PERSONNEL DELIVERY PERSONNEL: [id number];[id number];[id number];[id number] Delivery Doctor:: Kj Dyson DO Anesthesiologist:: Renita Ortiz MD CANVAS SHRINKER:: Marcy Kerr CRNA Labor and Delivery Nurse:: Brian Vann RN Insole Coverer:: Brian Vann RN Neonatal Nurse Practitioner:: BASSAM Arnold Nursery Nurse:: Miranda Leon RN Federal District Clerk/PICK AND SHOVEL WORKER: [place] Federal District Clerk/PICK AND SHOVEL WORKER: Soumya Augustin CST Additional Personnel: : Eva Joseph RN MATERNAL INFORMATION Delivery Anesthesia: Epidural Medications After Delivery: Pitocin Bolus-Please Comment; Pitocin Drip 20 Units/1000ml NSS Estimated Blood Loss (ml): 600 Maternal Complications: Other Other Maternal Complications: PRE-ECLAMPSIA and GDM on Glyburide LABOR SUMMARY EDC: 09/13/2016 00:00 No. Babies in Womb: 1 Attempted: No Labor Anesthesia: Epidural LABOR INFORMATION Reason for Induction: Pre-Eclampsia Onset of Labor: 08/24/2016 19:30 Complete Dilatation: 08/25/2016 09:43 Cervical Ripening Agents: Cervidil; Simon Balloon Other Ripening Agents: SIMON BULB Oxytocin: Induction Group B Beta Strep: NEGATIVE Antibiotics # of Doses: 1 Antibiotics Time of Last Dose: 1230 Name of Antibiotic Given: Unasyn Steroids Given: None Reason Steroids Not Administered: Not Applicable MEMBRANES Membranes Rupture Method: Artificial Rupture of Membranes: 08/24/2016 16:56 Length of Rupture (hr): 22.27 Amniotic Fluid Color: Particulate Meconium Amniotic Fluid Amount: Moderate Amniotic Fluid Odor: None STAGES OF LABOR Stage 1 hr: 14 Stage 1 min: 13 Stage 2 hr: 5 Stage 2 min: 29 Stage 3 hr: 0 Stage 3 min: 1 Total Time in Labor hr: 19 Total Time in Labor min: 43 VAGINAL DELIVERY Episiotomy: None Laceration Extension: N/A Laceration Type: None Laceration Repair: Not Applicable Sponge Count Correct: N/A Sharps Count Correct: N/A CSECTION DELIVERY Primary Indication: Failure of Descent CSection Urgency: Non-Scheduled CSection Incidence: Primary Labor: Labor Elective: Nonelective CSection Incision: Lower Uterine Transverse BABY A INFORMATION Delivery Date/Time: 08/25/2016 15:12 Method of Delivery: Born in Route : No : N/A Forceps: N/A Vacuum Extraction: N/A PRESENTATION/POSITION BABY A Presentation: Cephalic Cephalic Presentation: Vertex Breech Presentation: N/A PLACENTA INFORMATION BABY A Placenta Delivery Time : 08/25/2016 15:13 Placenta Method of Delivery: Manual Removal Placenta Status: Delivered SCORES BABY A Heart Rate 1 min: >100 bpm Resp Effort 1 min: Good Cry Reflex Irritability 1 min: Cough or Sneeze or Pulls Away Muscle Tone 1 min: Some Flexion of Extremities Color 1 min: Blue/Pale Resuscitation Effort 1 min: Tactile Stimulation SCORE 1 MIN: 7 Heart Rate 5 min: >100 bpm Resp Effort 5 min: Good Cry Reflex Irritability 5 min: Cough or Sneeze or Pulls Away Muscle Tone 5 min: Some Flexion of Extremities Color 5 min: Body Avenel, Extremities Blue Resuscitation Effort 5 min: N/A SCORE 5 MIN: 8 INFANT INFORMATION BABY A Gestational Age at Delivery: 37.2 Gestational Status: Early Term- 37- 38.6 Weeks Outcome : Liveborn Infant Condition : Stable Sex: Female IDENTIFICATION BABY A Verification Date/Time: 08/25/2016 15:18 ID Band Number: [id number] Mother's Name Verified: Yes RN Verifying : Brian Vann, RN Additional Verifying Personnel: Miranda Leon, RN WEIGHT/LENGTH BABY A Birthweight (gm): 4050 Infant Weight (lb): 8 Infant Weight (oz): 15 Infant Length (in): 19.50 Length (cm): 49.53 CORD INFORMATION BABY A No. Cord Vessels: 3 Nuchal Cord : N/A Cord Blood Taken: Yes-For Storage (Mom's Blood type +) Suction: Mouth; Nose ASSESSMENT BABY A Skin to Skin: No BABY B INFORMATION : N/A
[2016-08-25] MEDS ORDERED: MORPHINE SULFATE 10 MG/ML INJ IM PRN ×2 (20:58)
[2016-08-25] MEDS: IBUPROFEN 800 MG TABLET PO PRN (21:46)
[2016-08-26] MEDS: OXYCODONE-ACETAMINOPHEN 5-325 MG TABLET PO PRN ×4 (03:58→20:13)
[2016-08-26 06:32] LABS: HEMATOCRIT 24.4 % (36.0-47.0); HGB HCT DIFFERENCE -0.4; MEAN CORPUSCULAR HEMOGLOBIN 29.6 pg (27.0-33.4); MEAN CORPUSCULAR HGB CONC 32.6 g/dL (32.0-36.0); MEAN CORPUSCULAR VOLUME 91 fl (80-97); RED BLOOD COUNT 2.68 10^6/uL (3.72-5.28); RED CELL DISTRIBUTION WIDTH 16.6 % (11.5-14.0); WHITE BLOOD COUNT 15.7 10^3/uL (4.0-10.5)
[2016-08-26] MEDS: PRENATAL VITAMIN W-O CA NO5/FE FUMARATE/FA CAPSULE PO SCH (09:25)
[2016-08-26] MEDS: DOCUSATE SODIUM 100 MG CAPSULE PO SCH ×2 (09:26→17:03)
--- NOTE | 2016-08-26 16:27 | PDOC PROGRESS REPORT ---
Subjective-OB Subjective: Post Delivery Day:1 26 year old G3 now P1 s/p PLTCS ppd 1. Voiding, ambulating and without difficulty. Denies any needs at this time Physical Exam (OB) Vital Signs: Temp Pulse Resp BP Pulse Ox 97.4 F 79 16 118/55 L 96 08/26/16 07:49 08/26/16 07:49 08/26/16 07:49 08/26/16 07:49 08/26/16 07:49 Intake & Output 08/25/16 08/26/16 08/27/16 06:59 06:59 06:59 Intake Total 360 Output Total 600 600 Balance -600 -240 - General General Appearance: Appears well In distress: None - PIH/Pre-Eclampsia DTR's: 2 + Clonus: Negative Headache: Absent Epigastric Pain: No Visual Changes: No - Dressing Removed: No Incision: Dressing - Lochia Lochia Amount: Small 10-25 ml Lochia Color: Rubra/Red - Abdomen Description: Tender, Soft, Round Hernia Present: No Fundal Description: Firm, Midline Fundal Height: u/u - u/2 - Respiratory Respiratory Status: No respiratory distress - Extremities Upper extremity: Normal inspection Lower extremities: Normal inspection - Psychological Associated symptoms: Normal affect, Normal mood Objective-Diagnostic Laboratory: 08/26/16 06:22 08/25/16 05:43 08/26/16 06:22 WBC 15.7 H RBC 2.68 L Hgb 8.0 L D Hct 24.4 L MCV 91 MCH 29.6 MCHC 32.6 RDW 16.6 H Plt Count 223 Assessment and Plan(PN) - Assessment and Plan (1) Gestational diabetes Qualifiers: Gestational diabetes mellitus control: oral hypoglycemic-controlled Trimester: unspecified trimester Qualified Code(s): O24.415 - Gestational diabetes mellitus in , controlled by oral hypoglycemic drugs Is this a current diagnosis for this admission?: YesPlan: continue stay, reassess glucose at pp visit (2) delivery delivered Is this a current diagnosis for this admission?: YesPlan: continue stay (3) Chorioamnionitis Qualifiers: Fetus number: single or unspecified fetus Trimester: unspecified trimester Qualified Code(s): O41.1290 - Chorioamnionitis, unspecified trimester, not applicable or unspecified Is this a current diagnosis for this admission?: YesPlan: continue stay (4) Acute blood loss anemia Is this a current diagnosis for this admission?: YesPlan: po FeSO4 and increase dietary iron (5) Pre-eclampsia Qualifiers: Trimester: unspecified trimester Qualified Code(s): O14.90 - Unspecified pre-eclampsia, unspecified trimester Is this a current diagnosis for this admission?: YesPlan: continue stay - Time Spent with Patient Time with patient: 15-25 minutes Medications reviewed and adjusted accordingly: Yes - Disposition Anticipated Discharge: Home Within: within 24 hours
[2016-08-26] MEDS: IBUPROFEN 800 MG TABLET PO PRN (18:00)
[2016-08-27] MEDS: OXYCODONE-ACETAMINOPHEN 5-325 MG TABLET PO PRN ×3 (05:56→23:22)
[2016-08-27] MEDS: IBUPROFEN 800 MG TABLET PO PRN ×3 (05:56→22:26)
--- NOTE | 2016-08-27 10:01 | PDOC PROGRESS REPORT ---
Subjective-OB Subjective: Post Delivery Day: 1 26 year old. Denies any needs at this time, states lochia is stable, voiding without difficulty, pain well controlled, passing gas, baby in nicu. Physical Exam (OB) Vital Signs: Temp Pulse Resp BP Pulse Ox 98.2 F 92 18 142/78 H 98 08/27/16 08:41 08/27/16 08:41 08/27/16 08:41 08/27/16 08:41 08/27/16 08:41 Intake & Output 08/26/16 08/27/16 08/28/16 06:59 06:59 06:59 Intake Total 360 Output Total 600 600 Balance -600 -240 - PIH/Pre-Eclampsia DTR's: 2 + Clonus: Negative Headache: Absent Epigastric Pain: No Visual Changes: No - Dressing Removed: No Incision: Dressing - Lochia Lochia Amount: Scant < 10 ml Lochia Color: Rubra/Red - Abdomen Description: Soft, Round Hernia Present: No Fundal Description: Firm, Midline Fundal Height: u/u - u/2 Objective-Diagnostic Laboratory: 08/26/16 06:22 08/25/16 05:43 Assessment and Plan(PN) - Assessment and Plan (1) Acute blood loss anemia Is this a current diagnosis for this admission?: YesPlan: ferrous sulfate increase dietary iron (2) delivery delivered Is this a current diagnosis for this admission?: YesPlan: routine post op care (3) Chorioamnionitis Qualifiers: Fetus number: single or unspecified fetus Trimester: unspecified trimester Qualified Code(s): O41.1290 - Chorioamnionitis, unspecified trimester, not applicable or unspecified Is this a current diagnosis for this admission?: YesPlan: abx completed (4) Gestational diabetes Qualifiers: Gestational diabetes mellitus control: oral hypoglycemic-controlled Trimester: unspecified trimester Qualified Code(s): O24.415 - Gestational diabetes mellitus in , controlled by oral hypoglycemic drugs Is this a current diagnosis for this admission?: YesPlan: yearly screening (5) Pre-eclampsia Qualifiers: Trimester: unspecified trimester Qualified Code(s): O14.90 - Unspecified pre-eclampsia, unspecified trimester Is this a current diagnosis for this admission?: YesPlan: 1 w bp f/u - Time Spent with Patient Time with patient: Less than 15 minutes Critical Time spent with patient: Less than 15 minutes Medications reviewed and adjusted accordingly: Yes - Disposition Anticipated Discharge: Home Within: within 24 hours
[2016-08-27] MEDS: DOCUSATE SODIUM 100 MG CAPSULE PO SCH ×2 (10:40→17:37)
[2016-08-27] MEDS: PRENATAL VITAMIN W-O CA NO5/FE FUMARATE/FA CAPSULE PO SCH (10:40)
[2016-08-28] MEDS: IBUPROFEN 800 MG TABLET PO PRN ×2 (05:58→11:50)
--- NOTE | 2016-08-28 09:34 | PDOC DISCHARGE SUMMARY ---
Final Diagnosis Discharge Date: 08/28/16 - Final Diagnosis (1) Acute blood loss anemia Is this a current diagnosis for this admission?: Yes (2) delivery delivered Is this a current diagnosis for this admission?: Yes (3) Chorioamnionitis Is this a current diagnosis for this admission?: Yes (4) Gestational diabetes Is this a current diagnosis for this admission?: Yes (5) Pre-eclampsia Is this a current diagnosis for this admission?: Yes Discharge Data - Discharge Medication Home Medications: Budesonide/Formoterol Fumarate [Symbicort HFA 80-4.5 mcg Inhaler 6.9 gm] 1 puff IH DAILY 08/13/16 Docusate Sodium [Colace 100 mg Capsule] 100 mg PO BID #60 capsule 08/28/16 Ferrous Sulfate [Feosol 325 mg Tablet] 325 mg PO DAILY #30 tab 08/28/16 Ibuprofen [Motrin 800 mg Tablet] 800 mg PO Q6HP PRN #60 tablet 08/28/16 Oxycodone HCl/Acetaminophen [Percocet 5-325 mg Tablet] 2 tab PO Q4HP PRN #30 tablet 08/28/16 Gestational Age: 37.2 Reason(s) for Admission: Induction of Labor, PIH, Gestional Diabetes Procedures: NST Intrapartum Procedure(s): : Low Cervical, Transverse - Data Baby 1 Female at 1 minute: 7 at 5 minutes: 8 Weight: 4050 kg Home with Mother: No Complications: Yes - infant in nicu - Diagnosis Test Laboratory: Temp Pulse Resp BP Pulse Ox 98.1 F 83 16 135/87 H 99 08/28/16 08:21 08/28/16 08:21 08/28/16 08:21 08/28/16 08:21 08/28/16 08:21 08/23/16 08/23/16 08/24/16 17:15 17:22 05:05 RBC 3.99 3.89 Hgb 11.6 L 11.5 L Hct 35.5 L 34.9 L Urine Opiates Screen NEGATIVE 08/24/16 08/25/16 08/26/16 17:38 05:43 06:22 RBC 3.90 4.01 2.68 L Hgb 11.5 L 11.8 L 8.0 L D Hct 35.2 L 36.0 24.4 L Urine Opiates Screen - Discharge information/Instructions Discharge Activity: Activity As Tolerated, Balance Activity w/Rest, No Lifting Over 10 Pounds, Pelvic Rest, No tub bath Discharge Diet: Regular Disposition: HOME, SELF-CARE Follow up with: [facility] in: 1, Weeks
[2016-08-28] MEDS: DOCUSATE SODIUM 100 MG CAPSULE PO SCH (09:42)
[2016-08-28] MEDS: PRENATAL VITAMIN W-O CA NO5/FE FUMARATE/FA CAPSULE PO SCH (09:42)
[2016-08-28 11:48] VITALS: BP 126/63
[2016-08-28] MEDS: OXYCODONE-ACETAMINOPHEN 5-325 MG TABLET PO PRN (11:50)
--- NOTE | 2016-10-12 14:35 | OPERATIVE REPORT E ---
Operative Report NAME: REY REY : 1990 AGE: 26Y DATE OF SURGERY: 08/25/2016 ROOM: 227 PREOPERATIVE DIAGNOSES: 1. Arrest of descent. 2. Chorioamnionitis. POSTOPERATIVE DIAGNOSES: 1. Arrest of descent. 2. Chorioamnionitis. PROCEDURE: Primary low transverse section. SURGEON: Kj Dyson D.O. ACID CLEANER: None. ANESTHESIA: Epidural. COMPLICATIONS: None. PATHOLOGY: Placenta. ESTIMATED BLOOD LOSS: 600 mL. FINDINGS: 1. Viable female infant at 1512 hours on August 25, 2016. Apgars 8 at 1 and 9 at 5. 2. Normal appearing bilateral fallopian tube and ovaries. PROCEDURE: The patient was taken to the operating room where she was placed in a dorsal supine position upon the operating table with a leftward tilt. Her epidural was found to be working properly. She was then prepped and draped in a normal sterile fashion. A scalpel was then used to make a Pfannenstiel skin incision. The skin incision was carried down through the subcutaneous tissues to the layer of the fascia. Fascia was then incised in the midline. The fascial incision was then extended bilaterally using the Bovie cautery. The superior fascial edge was grasped with Felicia clamps, elevated, and the rectus muscles dissected off sharply and bluntly. Attention was then turned to the inferior fascial edge which was grasped with Felicia clamps, elevated, and the rectus muscles dissected off sharply and bluntly. Rectus muscles were then in the midline. Peritoneum identified and entered bluntly with the surgeon's hands. The bladder blade was inserted. A scalpel was then used to make a low transverse hysterotomy incision. The infant was found to be in the cephalic position and delivered through the incision without difficulty and atraumatically. The nose and mouth were suctioned. The cord was clamped and cut. The infant was handed off to the awaiting audit clerk. Cord blood was obtained. The placenta was then manually removed from the uterus. Uterus was then exteriorized and then cleared of all clots and debris. The hysterotomy incision was then reapproximated using 2 layers of 1-0 Vicryl in a running locking fashion. Following closure of the second layer, excellent hemostasis was noted. The uterus was then returned to the abdomen. Again the hysterotomy incisions were inspected and found to have excellent hemostasis. The rectus muscles were then reapproximated using 1-0 Vicryl in interrupted sutures. The fascia was then closed using 1-0 Vicryl in a running non-locking fashion. The subcutaneous space was made hemostatic using Bovie cautery. The skin was then closed with absorbable ruthie, covered with an OpSite and then with a pressure dressing. At this point in time, the procedure was terminated. All sponge, lap, and needle counts were correct x2. The patient tolerated the procedure well. The patient was taken to recovery room in stable condition. DICTATING PHYSICIAN: Kj Dyson DO [id number] PHY#: [id number] ID: [id number] JOB#: [id number] ACCT: [id number] cc:Kj Dyson D.O. >
== END 2016-08-28 14:45 | disposition home or self-care (01) | DRG 765 ==
LOC: LC 16:53 → LR 19:06 → 2S 08-25 18:20
PROVIDERS: ADMIT Specialist; ATTEND Specialist
PROC: 10D00Z1 Extraction of Products of Conception, Low, Open Approach (ICD-10-PCS; principal; 2016-08-25)
DX: O14.94 Unspecified pre-eclampsia, complicating childbirth (principal); O41.1230 Chorioamnionitis, third trimester, not applicable or unspecified; D62 Acute posthemorrhagic anemia; Z37.0 Single live birth; O24.425 Gestational diabetes mellitus in childbirth, controlled by oral hypoglycemic drugs; O77.0 Labor and delivery complicated by meconium in amniotic fluid; O32.4XX0 Maternal care for high head at term, not applicable or unspecified; Z3A.37 37 weeks gestation of pregnancy; O99.02 Anemia complicating childbirth; O13.4 Gestational [pregnancy-induced] hypertension without significant proteinuria, complicating childbirth; O62.1 Secondary uterine inertia
CPT/HCPCS: 1961; 36000; 36415; 80053; 80307; 81001; 82570; 82962; 83615; 84156; 84550; 85025; 85027; 86592; 86850; 86900; 86901; 88307; 94760; 94799; C1726; J0131; J0295; J0360; J0690; J2210; J2250; J2270; J2300; J2405; J2590; J3010; J3490